=== PATIENT | male | born 1960 | race Caucasian/White ===

== ENCOUNTER 2018-09-03 13:04 | Emergency (ER) | payer MEDICARE ==
[~2018-09-03] VITALS: Ht 172.7 cm; Wt 111.4 kg
[2018-09-03] MEDS ORDERED: ARIP5TAB8 PO (13:15)
[2018-09-03] MEDS ORDERED: LEVO100 PO (13:15)
[2018-09-03] MEDS ORDERED: PHEN-460 PO (13:15)
[2018-09-03 14:29] LABS: ANION GAP 9 mmol/L (8-16); BASOPHILS % (AUTO) 0.6 % (0.0-2.0); CALCIUM, TOTAL 8.9 mg/dL (8.8-10.5); CARBON DIOXIDE 26 mmol/L (22-29); CHLORIDE 106 mmol/L (98-107); CREATININE 1.24 mg/dL (0.60-1.30); EOSINOPHILS % (AUTO) 3.9 % (1.0-6.0); GLOMERULAR FILTR. RATE CALC 60 mL/min (>60); GLUCOSE,RANDOM 88 mg/dL (70-110); HEMATOCRIT 44.2 % (41-53); HEMOGLOBIN 14.8 g/dL (13.5-17.5); LYMPHOCYTES # (AUTO) 1.1 K/uL (1.0-4.8); MEAN CORPUSCULAR HEMOGLOBIN 30.6 pg (26.0-34.0); MEAN CORPUSCULAR HGB CONC 33.5 G/dL (31.0-37.0); MEAN CORPUSCULAR VOLUME 92 fL (80-100); MONOCYTES # (AUTO) 0.8 K/uL (0.1-1.0); MONOCYTES % (AUTO) 16.4 % (2.0-9.0); NEUTROPHILS # (AUTO) 2.6 K/uL (1.8-7.7); NEUTROPHILS % (AUTO) 55.1 % (40.0-70.0); PLATELET COUNT (AUTO) 212 K/uL (150-450); POTASSIUM 3.8 mmol/L (3.5-5.1); RED BLOOD CELL COUNT(AUTO) 4.83 MIL/uL (4.50-5.90); RED CELL DISTRIBUTION WIDTH 14.8 % (11.5-14.5); SODIUM SERUM 141 mmol/L (136-145); UREA NITROGEN, BLOOD 29 mg/dL (7-18)
[2018-09-03 14:38] LABS: B-TYPE NATRIURETIC PEPTIDE 39 pg/mL (0-100)
[2018-09-03 14:43] LABS: ALANINE AMINOTRANSFERASE 27 U/L (12-78); ALBUMIN 3.5 g/dL (3.4-5.0); ALKALINE PHOSPHATASE 68 U/L (46-116); ASPARTATE AMINOTRANSFERASE 18 U/L (15-37); BILIRUBIN,TOTAL 0.4 mg/dL (0.1-1.0); TOTAL PROTEIN, SERUM 7.4 g/dL (6.4-8.2)
[2018-09-03 14:44] LABS: PHENYTOIN (DILANTIN) < 0.5 mcg/mL (10.0-20.0)
[2018-09-03 15:11] LABS: THYROID STIMULATING HORMONE 138.84 uIU/mL (0.36-3.74)
[2018-09-03] MEDS ORDERED: FUROSEMIDE 20 MG TABLET PO ONE (16:00)
[2018-09-03] MEDS ORDERED: LEVOTHYROXINE SODIUM 150 MCG TABLET PO ONE (16:00)
[2018-09-03 16:40] VITALS: BP 141/87
== END 2018-09-03 16:45 | disposition home or self-care (01) ==
LOC: EMS 13:04
DX: R60.9 Edema, unspecified (principal); E03.9 Hypothyroidism, unspecified; G89.29 Other chronic pain; F17.210 Nicotine dependence, cigarettes, uncomplicated; M79.605 Pain in left leg; M79.604 Pain in right leg; M19.90 Unspecified osteoarthritis, unspecified site; F20.9 Schizophrenia, unspecified; Z79.899 Other long term (current) drug therapy
CPT/HCPCS: 84443; 85379; 93970; 99406